=== PATIENT | female | born 1995 | race Caucasian/White ===

== ENCOUNTER 2022-08-17 10:13 | Emergency (ER) | payer OTHER ==
[2022-08-17 10:17] VITALS: BP 121/79; BMI 36.6
[2022-08-17] MEDS ORDERED: ACETAMINOPHEN 500 MG TABLET (FP) PO ONE (10:39)
[2022-08-17 10:40] VITALS: TEMP 99.2
[2022-08-17] MEDS ORDERED: ACETAMINOPHEN 325 MG TABLET (FP) ONE (10:50)
[2022-08-17 10:55] VITALS: PULSE 85; RESP 21
== END 2022-08-17 14:34 | disposition home or self-care (01) ==
LOC: JER 10:13
DX: O9A.213 Injury, poisoning and certain other consequences of external causes complicating pregnancy, third trimester (principal); M54.9 Dorsalgia, unspecified; M54.6 Pain in thoracic spine; G89.29 Other chronic pain; V49.50XA Passenger injured in collision with unspecified motor vehicles in traffic accident, initial encounter; Z3A.29 29 weeks gestation of pregnancy
CPT/HCPCS: 76801-TC; 99284-25

== ENCOUNTER 2022-11-29 16:50 | Emergency (ER) | payer OTHER ==
[2022-11-29 16:56] VITALS: BP 105/62; PULSE 77; RESP 18; TEMP 98.3; BMI 30.9
[2022-11-29] MEDS ORDERED: AMOX TR/POT CLAV 875MG/125MG TABLETS (FP) PO ONE (17:51)
[2022-11-29] MEDS ORDERED: AMOX TR/POT CLAV 875MG/125MG TABLETS (FP) ONE (18:09)
== END 2022-11-29 18:56 | disposition home or self-care (01) ==
LOC: JERFT 16:50
DX: S60.519A Abrasion of unspecified hand, initial encounter (principal); S60.819A Abrasion of unspecified wrist, initial encounter; S70.319A Abrasion, unspecified thigh, initial encounter; W55.03XA Scratched by cat, initial encounter; Y93.9 Activity, unspecified; Y92.9 Unspecified place or not applicable
CPT/HCPCS: 99283-25